=== PATIENT | female | born 1975 | race Two or more races ===

== ENCOUNTER 2020-02-06 05:45 | Day surgery (SDC) | payer OTHER ==
[~2020-02-06 05:45] MED LIST: DULCOLAX5 MG PO; DURICEF500 MG PO; PREVACID 15MG15 MG PO; REGLAN5 MG/5 ML PO; [UNRECOGNIZED DRUG - OTHER] PO
[2020-02-06] MEDS ORDERED: PROTONIX40 MG PO (09:24)
[2020-02-06] MEDS ORDERED: KEFLEX500 MG PO (09:24)
[2020-02-06] MEDS ORDERED: ULTRACET PO (09:24)
== END 2020-02-06 15:00 | disposition home or self-care (01) ==
LOC: CIR.AMB 05:45
PROVIDERS: ATTEND Surgery
DX: I87.2 Venous insufficiency (chronic) (peripheral) (principal); Z20.828 Contact with and (suspected) exposure to other viral communicable diseases

== ENCOUNTER 2021-06-04 12:46 | Emergency (ER) | payer OTHER ==
[~2021-06-04] VITALS: Ht 165.1 cm; Wt 86.2 kg
[~2021-06-04 12:46] MED LIST changes: +KEFLEX500 MG PO; +PROTONIX40 MG PO; +ULTRACET PO
[2021-06-04] MEDS ORDERED: MUCINEX DM ER1 EAC1 PO (17:05)
[2021-06-04] MEDS ORDERED: SYMBICORT 16010.2 GM IH (17:05)
[2021-06-04] MEDS ORDERED: PEPCID AC20 MG PO (17:26)
[2021-06-04] MEDS ORDERED: PAXLOVID PO (17:26)
[2021-06-04] MEDS ORDERED: DICLOFENAC POTA50 MG PO (17:26)
== END 2021-06-04 17:53 ==
LOC: ER 12:46
DX: U07.1 COVID-19 (principal)

== ENCOUNTER 2024-05-12 18:35 | Emergency (ER) | payer OTHER ==
[~2024-05-12] VITALS: Ht 165.1 cm; Wt 86.2 kg
[~2024-05-12 18:35] MED LIST changes: +DICLOFENAC POTA50 MG PO; +MUCINEX DM ER1 EAC1 PO; +PAXLOVID PO; +PEPCID AC20 MG PO; +SYMBICORT 16010.2 GM IH
[2024-05-12] MEDS ORDERED: KETOROLAC TROMETHAMINE 60 MG VIAL IM ONE (21:15)
[2024-05-12] MEDS ORDERED: ORPHENADRINE CITRATE 30 MG/ML AMPUL IM ONE (21:15)
== END 2024-05-12 22:18 | disposition home or self-care (01) ==
LOC: ER 18:37
DX: M94.0 Chondrocostal junction syndrome [Tietze] (principal); Z88.2 Allergy status to sulfonamides; M62.838 Other muscle spasm
CPT/HCPCS: 71110; 96372; 99283; J1885; J2360

== ENCOUNTER 2024-11-03 09:22 | Emergency (ER) | payer OTHER ==
[~2024-11-03] VITALS: Ht 165.1 cm; Wt 81.6 kg
[2024-11-03 10:01] VITALS: BP 135/85; O2SAT 100
[2024-11-03] MEDS ORDERED: SYNJARDY XR 251 EACH PO (10:06)
[2024-11-03] MEDS ORDERED: MECLIZINE HCL 25 MG TABLET PO ONE ×3 (10:30→13:30)
[2024-11-03] MEDS ORDERED: 0.9 % SODIUM CHLORIDE 1,000 ML IV SCH (10:30)
[2024-11-03 11:00] LABS: BASO % 0.8 % (0.1-1.2); EOS # 0.04 (0.04-0.54); EOS % 0.7 % (0.7-7.0); HEMATOCRIT 35.9 % (34.1-44.9); HEMOGLOBIN 11.1 g/dL (11.2-15.7); LYMPH # 1.74 (1.18-3.74); LYMPH % 28.6 % (19.3-53.1); MEAN CORPUSCULAR HEMOGLOBIN 23.7 pg (25.6-32.2); MONO # 0.39 (0.24-0.82); MONO % 6.4 % (4.7-12.5); NEUT # 3.84 (1.56-6.13); NEUT % 63.2 % (34.0-71.1); PLATELET COUNT 261 K/uL (163-369); RED BLOOD COUNT 4.68 M/uL (3.93-5.22); RED CELL DISTRIBUTION WIDTH 17.9 % (11.6-14.4)
[2024-11-03 11:25] LABS: CALCIUM 8.8 mg/dL (8.5-10.1); CREATININE SERUM 0.79 mg/dL (0.55-1.02); GFR 77.35; POTASSIUM 4.49 mEq/L (3.5-5.1)
[2024-11-03] MEDS ORDERED: ONDANSETRON HCL 2 MG/ML VIAL IV STA (13:40)
[2024-11-03] MEDS ORDERED: DIAZEPAM 5 MG TABLET PO ONE (13:45)
[2024-11-03] MEDS ORDERED: ONDANSETRON HCL 2 MG/ML VIAL ONE (14:02)
== END 2024-11-03 15:26 | disposition home or self-care (01) ==
LOC: ER 09:22
PROVIDERS: Emergency Medicine
DX: R42 Dizziness and giddiness (principal); Z88.2 Allergy status to sulfonamides; I10 Essential (primary) hypertension